=== PATIENT | female | born 1960 | race African-American/Black ===

== ENCOUNTER 2018-10-17 16:35 | Emergency (ER) | payer OTHER ==
[2018-10-17 16:59] VITALS: BP 145/80; PULSE 88; TEMP 97.9; BMI 27.4
--- NOTE | 2018-10-17 16:59 | PDOC ---
Rapid Medical Evaluation Time Seen by Provider: 10/17/18 16:56 Medical Evaluation: Allergies Allergy/AdvReac Type Severity Reaction Status Date / Time No Known Allergies Allergy Verified 10/17/18 16:56 10/17/18 16:56 I have performed a brief in-person evaluation of this patient. The patient presents with a chief complaint of: palpitations today Pertinent physical exam findings: Lungs CTAB. RRR no m/r/g. Skin warm and dry. I have ordered the following: ekg, labs The patient will proceed to the ED for further evaluation. Discharge Disposition - Diagnosis Palpitations - Referrals - Patient Instructions - Post Discharge Activity
[2018-10-17 17:50] LABS: ALBUMIN 3.4 g/dl (3.4-5.0); ALK PHOS 105 U/L (45-117); ANION GAP 8 MMOL/L (8-16); BILIRUBIN,TOTAL 0.2 mg/dL (0.2-1); BLOOD UREA NITROGEN 18 mg/dL (7-18); CALCIUM 8.4 mg/dL (8.5-10.1); CHLORIDE 106 mmol/L (98-107); CO2 27 mmol/L (21-32); CREATININE 1.4 mg/dL (0.55-1.3); GLUCOSE,RANDOM 92 mg/dL (74-106); MAGNESIUM 2.1 mg/dL (1.8-2.4); POTASSIUM 3.7 mmol/L (3.5-5.1); SGOT/AST 30 U/L (15-37); SGPT/ALT 30 U/L (13-61); SODIUM 140 mmol/L (136-145); TOT PROT 7.7 g/dl (6.4-8.2)
[2018-10-17 17:59] LABS: INR 0.97 (0.83-1.09); PROTHROMBIN TIME (PATIENT) 11.5 SEC (9.7-13.0)
[2018-10-17 18:02] LABS: BASO % 0.4 % (0-2.0); EOS % 2.5 % (0-4.5); HEMATOCRIT 29.1 % (32.4-45.2); HEMOGLOBIN 9.6 GM/dL (10.7-15.3); LYMPH % 17.8 % (8-40); MEAN CELL VOLUME 55.6 fl (80-96); MEAN PLT VOLUME 9.1 fl (7.5-11.1); NEUT % 62.3 % (42.8-82.8); PLATELET COUNT 238 K/MM3 (134-434); RBC 5.23 M/mm3 (3.60-5.2); RDW 23.2 % (11.6-15.6); WHITE BLOOD COUNT 4.9 K/mm3 (4.0-10.0)
[2018-10-17 18:08] LABS: MCH 18.4 pg (25.7-33.7)
--- NOTE | 2018-10-17 19:08 | PDOC ---
History of Present Illness - General Chief Complaint: Palpitations Stated Complaint: PALPITATIONS Time Seen by Provider: 10/17/18 16:56 History Source: Patient Exam Limitations: No Limitations - History of Present Illness Initial Comments: 10/17/18 19:22 57 year old female with PMH HTN presented to ED for palpitations lasting 1 hour today. She stated the palpitations occurred while she was sitting resting and resolved on their own. She took her pulse (113) and BP (154/90) at 1500, called her PCP, and was told to go to the ED. Pt denied chest pain, shortness of breath , cough, fever, nausea, vomiting, diarrhea, abdominal pain, neck pain, arm pain , lower extremity swelling. PT stated she took all of her blood pressure medication today. Pt denied travel>5 hours, surgery <4 weeks, active malignancy <6 months, hx DVT/PE, hemoptysis, bed rest. Pt denied family history of cardiac disorders. Allergies: NKDA Medications: Losartan 50 mg daily Past History - Past Medical History Allergies/Adverse Reactions: Allergies Allergy/AdvReac Type Severity Reaction Status Date / Time No Known Allergies Allergy Verified 10/17/18 16:56 Home Medications: Ambulatory Orders Losartan Potassium [Cozaar -] 50 mg PO DAILY 10/17/18 COPD: No HTN: Yes - Immunization History Immunization Up to Date: Yes - Suicide/Smoking/Psychosocial Hx Smoking History: Never smoked Information on smoking cessation initiated: No Hx Alcohol Use: No Drug/Substance Use Hx: No Review of Systems - Review of Systems Able to Perform ROS?: Yes Comments:: 10/17/18 19:26 General: denied fever, chills, night sweats, generalized weakness. HEENT: denied sore throat, rhinorrhea, ear pain. Heart: admitted to palpitations. denied chest pain, syncope, lower extremity swelling, diaphoresis. Respiratory: denied shortness of breath, cough, sputum production, hemoptysis. Abdomen: denied abdominal pain, nausea, vomiting, diarrhea, constipation, blood in stool. : denied dysuria, increased urinary frequency, hematuria, urinary incontinence , flank pain. Back: denied back pain. Musculoskeletal: denied joint pain, muscle pain, joint swelling. Neurological: denied headache, dizziness, numbness, tingling, weakness. Skin: denied rash, laceration, abrasion. *Physical Exam - Vital Signs Last Vital Signs Temp Pulse Resp BP Pulse Ox 97.9 F 88 17 145/80 100 10/17/18 16:57 10/17/18 16:57 10/17/18 16:57 10/17/18 16:57 10/17/18 16:57 - Physical Exam Comments: 10/17/18 19:26 Constitutional: Well-nourished, Well-developed, appearing stated age. HEENT: head is normocephalic, atraumatic. EOMI. PERRLA. Neck: supple. Full ROM. Heart: regular rhythm. no murmurs, rubs or gallops. Lungs: clear to auscultation bilaterally. no crackles, rhonchi or wheezing. no stridor. Abdomen: soft, nontender. normal bowel sounds. no rebound, guarding, masses. Extremities: Peripheral pulses intact. No lower extremity pitting edema. mild swelling to lateral aspect of right ankle. no calf tenderness bilaterally. Neurological: CN 2-12 grossly intact. Moves all four extremities. Psych: awake, alert, oriented x3. Follows commands. Answers questions appropriately. Moderate Sedation - Procedure Monitoring Vital Signs: Procedure Monitoring Vital Signs Temperature 97.9 F 10/17/18 16:57 Pulse Rate 88 10/17/18 16:57 Respiratory Rate 17 10/17/18 16:57 Blood Pressure 145/80 10/17/18 16:57 O2 Sat by Pulse Oximetry (%) 100 10/17/18 16:57 ED Treatment Course - LABORATORY CBC & Chemistry Diagram: 10/17/18 17:16 10/17/18 17:16 - ADDITIONAL ORDERS Additional order review: Laboratory Results 10/17/18 10/17/18 17:16 17:16 PT with INR 11.50 INR 0.97 Sodium 140 Potassium 3.7 Chloride 106 Carbon Dioxide 27 Anion Gap 8 BUN 18 Creatinine 1.4 H Creat Clearance w eGFR 39.04 Random Glucose 92 Calcium 8.4 L Magnesium 2.1 Total Bilirubin 0.2 AST 30 ALT 30 Alkaline Phosphatase 105 Creatine Kinase 236 H Creatine Kinase Index 0.9 CK-MB (CK-2) 2.3 Troponin I < 0.02 Total Protein 7.7 Albumin 3.4 10/17/18 17:16 RBC 5.23 H MCV 55.6 L MCHC 33.0 RDW 23.2 H MPV 9.1 Neutrophils % 62.3 Lymphocytes % 17.8 Monocytes % 17.0 H Eosinophils % 2.5 Basophils % 0.4 Medical Decision Making - Medical Decision Making 10/17/18 19:27 57 year old female with PMH HTN presented to ED for self resolving episode of palpitations lasting x1 hour. Pt sent to ED after calling PCP office. Initial Vital Signs Temp Pulse Resp BP Pulse Ox 97.9 F 88 17 145/80 100 10/17/18 16:57 10/17/18 16:57 10/17/18 16:57 10/17/18 16:57 10/17/18 16:57 Afebrile. No tachycardia. No tachypnea. Mild hypertension. No hypoxia on room air. Labs ordered: CBC, CMP, TSH Imaging ordered: CXR Medications ordered: none EKG performed at 1646: rate 87, regular rhythm, left axis, normal intervals, QTc 490, diffuse T flattening. No prior to compare. CXR my interpretation: sharp costophrenic angles, no cardiomegaly, no infiltrate , no pneumothorax. CBC WBC 4.9 K/mm3 (4.0-10.0) 10/17/18 17:16 RBC 5.23 M/mm3 (3.60-5.2) H 10/17/18 17:16 Hgb 9.6 GM/dL (10.7-15.3) L 10/17/18 17:16 Hct 29.1 % (32.4-45.2) L 10/17/18 17:16 MCV 55.6 fl (80-96) L 10/17/18 17:16 MCH 18.4 pg (25.7-33.7) L 10/17/18 17:16 MCHC 33.0 g/dl (32.0-36.0) 10/17/18 17:16 RDW 23.2 % (11.6-15.6) H 10/17/18 17:16 Plt Count 238 K/MM3 (134-434) 10/17/18 17:16 MPV 9.1 fl (7.5-11.1) 10/17/18 17:16 Absolute Neuts (auto) 3.0 K/mm3 (1.5-8.0) 10/17/18 17:16 Neutrophils % 62.3 % (42.8-82.8) 10/17/18 17:16 Lymphocytes % 17.8 % (8-40) 10/17/18 17:16 Monocytes % 17.0 % (3.8-10.2) H 10/17/18 17:16 Eosinophils % 2.5 % (0-4.5) 10/17/18 17:16 Basophils % 0.4 % (0-2.0) 10/17/18 17:16 Nucleated RBC % 0 % (0-0) 10/17/18 17:16 No leukocytosis. Mild microcytic anemia. Elevation of monocytes. CMP Sodium 140 mmol/L (136-145) 10/17/18 17:16 Potassium 3.7 mmol/L (3.5-5.1) 10/17/18 17:16 Chloride 106 mmol/L (98-107) 10/17/18 17:16 Carbon Dioxide 27 mmol/L (21-32) 10/17/18 17:16 Anion Gap 8 MMOL/L (8-16) 10/17/18 17:16 BUN 18 mg/dL (7-18) 10/17/18 17:16 Creatinine 1.4 mg/dL (0.55-1.3) H 10/17/18 17:16 Creat Clearance w eGFR 39.04 (>60) 10/17/18 17:16 Random Glucose 92 mg/dL (74-106) 10/17/18 17:16 Calcium 8.4 mg/dL (8.5-10.1) L 10/17/18 17:16 Magnesium 2.1 mg/dL (1.8-2.4) 10/17/18 17:16 Total Bilirubin 0.2 mg/dL (0.2-1) 10/17/18 17:16 AST 30 U/L (15-37) 10/17/18 17:16 ALT 30 U/L (13-61) 10/17/18 17:16 Alkaline Phosphatase 105 U/L (45-117) 10/17/18 17:16 Creatine Kinase 236 IU/L (26-192) H 10/17/18 17:16 Creatine Kinase Index 0.9 % (0.0-5.0) 10/17/18 17:16 CK-MB (CK-2) 2.3 ng/mL (0.5-3.6) 10/17/18 17:16 Troponin I < 0.02 ng/ml (0.00-0.05) 10/17/18 17:16 Total Protein 7.7 g/dl (6.4-8.2) 10/17/18 17:16 Albumin 3.4 g/dl (3.4-5.0) 10/17/18 17:16 TSH 1.48 uIU/ml (0.358-3.74) 10/17/18 17:16 No electrolyte abnormalities. Mildly elevated Cr, none to compare. No transaminitis. Mildly elevated CK. Normal troponin. Normal TSH. Microcytic anemia possibly causing palpitations, but unlikely. No arrhythmia captured on EKG, no recurrence of palpitations while in the department. No hyperthyroidism. Diffuse T wave flattening unlikely to be pericarditis in the setting of no chest pain. Pt informed of mildly increased Cr and mild anemia and given copies of results. Pt informed to bring results to primary care doctor. Pt informed to follow up in 1-2 days. Pt to be discharged. *DC/Admit/Observation/Transfer Diagnosis at time of Disposition: Palpitations, Microcytic anemia - Discharge Dispostion Disposition: HOME Condition at time of disposition: Improved Decision to Admit order: No - Referrals Referrals: Magdiel Morgan MD [Primary Care Provider] - - Patient Instructions Printed Discharge Instructions: DI for Palpitations Additional Instructions: You were seen today for palpitations. Your EKG had changes to it, we had no previous EKG to compare. Take the copy given to you to your follow up appointments. Your X-ray was normal. Lab results: copies of results were given to you, take these to your follow up appointments. 1) Mild anemia 2) Mild kidney dysfunction Medications: 1) none Follow up: 1) Primary care doctor in 1-2 days 2) Industrial Engineering Technologist in 1-2 days, I have provided you with multiple referrals. Return to the Emergency Department for palpitations, racing heart, chest pain, lightheadedness, passing out, swelling to lower legs, or any other new, worsening or concerning symptoms. - Post Discharge Activity Forms/Work/School Notes: Back to Work
--- NOTE | 2018-10-17 19:38 | PDOC ---
Attending Attestation - HPI HPI: 10/17/18 19:50 The patient is a 57 year old female with a PMH of HTN on Losartan presenting to the ED for an episode of palpitations lasting for approximately an hour earlier today. Patient noticed the palpitations while sitting and have resolved on their own. Patient contacted her PCP, Dr. Magdiel Morgan, who told her to come to the ER for further evaluation. Patient reports taking her bp med today. Patient denies any cardiac history. Patient denies cp, sob, cough, fever, N/V/D, abdominal pain, neck pain, or lower extremity swelling. Allergies: NKDA Surgeries: None reported. Social History: No reported alcohol, drug or cigarette use. PCP: Dr. Morgan - Physicial Exam PE: 10/17/18 19:50 ADULT PHYSICAL EXAM Constitutional: Awake, alert, oriented. No acute distress. Head: Normocephalic. Atraumatic Eyes: PERRL. EOMI. Conjunctivae are not pale. ENT: Mucous membranes are moist and intact. Posterior pharynx without exudates or erythema. Uvula midline. Neck: Supple. Full ROM. No lymphadenopathy. Cardiovascular: Regular rate. Regular rhythm. S1, S2 regular. Distal pulses are 2+ and symmetric. Pulmonary/Chest: No evidence of respiratory distress. Clear to auscultation bilaterally No wheezing, rales or rhonchi. Abdominal: Soft and non-distended. There is no tenderness. No rebound, guarding or rigidity. No organomegaly. No palpable masses. Good bowel sounds. Back: No CVA tenderness. Musculoskeletal: No edema. No cyanosis. No clubbing. Full range of motion in all extremities. Nocalf tenderness. Radial/pedal pulses are intact and 2+ bilaterally Skin: Skin is warm and dry. No petechiae. No purpura. Neurological: Alert and oriented to person, place, and time. Cranial nerves II -XII are grossly intact. Normal speech. Strength is grossly symmetric. No sensory deficits. Psychiatric: Good eye contact. Normal interaction, affect and behavior. <Iveth Tafoya - Last Filed: 10/17/18 19:50> - Resident Resident Name: Ronda Lamb - ED Attending Attestation I have performed the following: I have examined & evaluated the patient, The case was reviewed & discussed with the resident, I agree w/resident's findings & plan, Exceptions are as noted - Medical Decision Making 10/17/18 19:37 I, Dr. Greta Castrejon, DO, attest that this document has been prepared under my direction and personally reviewed by me in its entirety. I further attest, that it accurately reflects all work, treatment, procedures and medical decision -making performed by me. 10/17/18 19:58 a/p: 57yo female with 1 hour of palpitations earlier today -no cp -has been drinking more green tea and not as much water -has known mild anemia - states hgb runs 9-10 at baseline -no somatic complaints while in the ed -pt refusing to have IV placed -discussed cr of 1.4 states she wants to orally hydrate and wants to follow up with her PMD labs sent are pending tsh - will continue to monitor and reassess 10/17/18 20:45 cxr clear thyroid normal drinking po will call Magdiel Morgan for follow up <Greta Castrejon - Last Filed: 10/17/18 20:46> Heart Score/ECG Review - ECG Intrepretation Comment:: 10/17/18 19:37 sinus at 87, nl axis, t wave flattening diffusely, no acute st changes, nl axis <Greta Castrejon - Last Filed: 10/17/18 20:46>
[2018-10-17 23:28] LABS: ANISOCYTOSIS 3+
[2018-10-17 23:29] LABS: OVALOCYTE 2+; PLATELET ESTIMATE ADEQUATE; TARGET CELLS 2+
--- NOTE | 2018-10-18 16:19 | EKG ---
Test Reason : Blood Pressure : / mmHG Vent. Rate : 087 BPM Atrial Rate : 087 BPM P-R Int : 150 ms QRS Dur : 072 ms QT Int : 408 ms P-R-T Axes : 046 -02 027 degrees QTc Int : 490 ms NORMAL SINUS RHYTHM POSSIBLE LEFT ATRIAL ENLARGEMENT NONSPECIFIC T WAVE ABNORMALITY ABNORMAL ECG NO PREVIOUS ECGS AVAILABLE Confirmed by MARCE COSME, LESLIE ([id number]) on 10/18/2018 4:19:33 PM Referred By: Confirmed By:LESLIE ZHENG MD
== END 2018-10-17 20:52 | disposition home or self-care (01) ==
LOC: JER 16:35
DX: R00.2 Palpitations (principal); D50.9 Iron deficiency anemia, unspecified
CPT/HCPCS: 36415; 71046-TC-FY; 80053; 82550; 82553; 83735; 84443; 84484; 85025; 85610; 93005; 93010; 99285-25